=== PATIENT | male | born 1995 | race Caucasian/White ===

== ENCOUNTER 2017-12-04 23:53 | Emergency (ER) | payer OTHER, MEDICAID ==
[2017-12-05] MEDS: ACETAMINOPHEN 325 MG TAB PO (07:29)
== END 2017-12-05 08:31 | disposition home or self-care (01) ==
LOC: FTE 23:53
DX: S00.83XA Contusion of other part of head, initial encounter (principal); V49.40XA Driver injured in collision with unspecified motor vehicles in traffic accident, initial encounter
CPT/HCPCS: 70450; 70486; 99285-25